=== PATIENT | female | born 1970 | race Hispanic/Latino ===

== ENCOUNTER 2017-03-24 06:50 | Emergency (ER) | payer SELFPAY ==
[2017-03-24 07:22] VITALS: BP 129/84
[2017-03-24 08:17] LABS: Urine Drugs of Abuse Note Disclamer
[2017-03-24 08:43] LABS: Basophils % (Auto) 0.3 % (0.0-1.8); Eosinophils % (Auto) 0.9 % (0.0-4.3); Hematocrit 34.7 % (30.3-42.9); Mean Corpuscular HGB Conc 34 % (30-34); Mean Corpuscular Hemoglobin 33 pg (28-32); Mean Corpuscular Volume 96 fl (79-97); Platelet Count 267 K/mm3 (140-440); Red Blood Count 3.62 M/mm3 (3.65-5.03); White Blood Count 7.5 K/mm3 (4.5-11.0)
[2017-03-24 08:53] LABS: Bilirubin,Urine NEG (Negative); Blood,Urine NEG (Negative); Ketones,Urine TR mg/dL (Negative); Leukocyte Esterase,Urine NEG (Negative); Mucus,Urine 3+ /HPF; Nitrite,Urine NEG (Negative); WBC,Urine < 1.0 /HPF (0.0-6.0)
[2017-03-24 09:01] LABS: Anion Gap 15 mmol/L; BUN/Creatinine Ratio 31.66; Blood Urea Nitrogen 19 mg/dL (7-17); Calcium 9.2 mg/dL (8.4-10.2); Carbon Dioxide 30 mmol/L (22-30); Chloride 101.2 mmol/L (98-107); Glucose 91 mg/dL (65-100); Potassium 3.3 mmol/L (3.6-5.0); Sodium 143 mmol/L (137-145)
--- NOTE | 2017-03-30 22:16 | ED Elopement Review ---
ED Pt Elopement review - Results review Lab results: Laboratory Tests 03/24/17 03/24/17 03/24/17 07:52 07:52 08:35 WBC RBC Hgb Hct MCV MCH MCHC RDW Plt Count Lymph % (Auto) Gates % (Auto) Eos % (Auto) Baso % (Auto) Lymph # Gates # Eos # Baso # Seg Neutrophils % Seg Neutrophils # Sodium 143 Potassium 3.3 L Chloride 101.2 Carbon Dioxide 30 Anion Gap 15 BUN 19 H Creatinine 0.6 L Estimated GFR > 60 BUN/Creatinine Ratio 31.66 Glucose 91 Calcium 9.2 Urine Color Sharmila Urine Turbidity Slightly-cloudy Urine pH 5.0 Ur Specific [place] 1.029 Urine Protein 30 mg/dl Urine Glucose (UA) Neg Urine Ketones Tr Urine Blood Neg Urine Nitrite Neg Urine Bilirubin Neg Urine Urobilinogen 4.0 Ur Leukocyte Esterase Neg Urine WBC (Auto) < 1.0 Urine RBC (Auto) 13.0 U Epithel Cells (Auto) 1.0 Calcium Oxalate Crystal 1+ Amorphous Crystals Few Urine Mucus 3+ Urine Opiates Screen Presumptive negative Urine Methadone Screen Presumptive negative Ur Barbiturates Screen Presumptive positive Ur Phencyclidine Scrn Presumptive negative Ur Amphetamines Screen Presumptive negative U Benzodiazepines Scrn Presumptive negative Urine Cocaine Screen Presumptive negative U Marijuana (THC) Screen Presumptive positive Drugs of Abuse Note Disclamer Plasma/Serum Alcohol 03/24/17 03/24/17 08:35 08:35 WBC 7.5 RBC 3.62 L Hgb 12.0 Hct 34.7 MCV 96 MCH 33 H MCHC 34 RDW 13.0 L Plt Count 267 Lymph % (Auto) 18.2 Gates % (Auto) 6.2 Eos % (Auto) 0.9 Baso % (Auto) 0.3 Lymph # 1.4 Gates # 0.5 Eos # 0.1 Baso # 0.0 Seg Neutrophils % 74.4 H Seg Neutrophils # 5.6 Sodium Potassium Chloride Carbon Dioxide Anion Gap BUN Creatinine Estimated GFR BUN/Creatinine Ratio Glucose Calcium Urine Color Urine Turbidity Urine pH Ur Specific [place] Urine Protein Urine Glucose (UA) Urine Ketones Urine Blood Urine Nitrite Urine Bilirubin Urine Urobilinogen Ur Leukocyte Esterase Urine WBC (Auto) Urine RBC (Auto) U Epithel Cells (Auto) Calcium Oxalate Crystal Amorphous Crystals Urine Mucus Urine Opiates Screen Urine Methadone Screen Ur Barbiturates Screen Ur Phencyclidine Scrn Ur Amphetamines Screen U Benzodiazepines Scrn Urine Cocaine Screen U Marijuana (THC) Screen Drugs of Abuse Note Plasma/Serum Alcohol < 0.01 - Call Back decision Pt Call Back Decision: No action required
== END 2017-03-24 07:25 | disposition left against medical advice (07) ==
LOC: ED 06:50
DX: Z00.8 Encounter for other general examination (principal); Z53.21 Procedure and treatment not carried out due to patient leaving prior to being seen by health care provider
CPT/HCPCS: 36415; 80048; 80307; 81001; 85025; G0480; 80320